=== PATIENT | female | born 1990 | race American Indian/Alaskan Native ===

== ENCOUNTER 2016-08-25 14:49 | Emergency (ER) | payer BC ==
[2016-08-25 15:06] VITALS: BP 148/78
--- NOTE | 2016-08-25 15:26 | Emergency Department Report ---
Entered by TAMAR CROWLEY, acting as scribe for TRENT KRUEGER NP. Chief Complaint: Abdominal Pain Stated Complaint: ABD PAIN,SWOLLEN FEET - HPI History of Present Illness: 26 y/o female, nontoxic, well developed, NAD, c/o of RLQ abdominal pain beginnin 4 days ago. Associated right groin pain, bilateral foot swelling, SOB. Denies recent travel, control use, calf pain, fever, chills, NVD, SOB, CP , WHEAT, dizziness, and back pain. - Exam Vital Signs: Vital Signs 08/25/16 15:02 Temperature 98.1 F Pulse Rate 100 H Respiratory 20 Rate Blood Pressure 148/78 O2 Sat by Pulse 99 Oximetry Physical Exam: GENERAL: The patient is a well-developed, well-nourished male in no apparent distress. Patient is alert and oriented x3. ABDOMEN: Soft, nontender, and nondistended. Positive bowel sounds. No hepatosplenomegaly was noted. No guarding or rebound tenderness, negative epigastric bruit. Negative psoas sign, negative boland sign, negative McBurneys sign EXTREMITIES: Without any cyanosis, clubbing, rash, lesions. Bilateral foot and LE swelling. Peripheral pulses intact. Capillary refill less than 2 seconds. MSE screening note: Focused history and physical exam performed. Due to findings the following was ordered: Amylase, CBC, CMP, Serum Test, Lipase, BNP, UA ED Disposition for MSE Condition: Stable Instructions: Abdominal Pain (ED) This documentation as recorded by the scribe,TAMAR CROWLEY,accurately reflects the service I personally performed and the decisions made by ,TRENT KRUEGER, MAX.
[2016-08-25 15:58] LABS: Amylase 37 units/L (27-131); Hematocrit 39.9 % (30.3-42.9); Hemoglobin 13.1 gm/dl (10.1-14.3); Lipase 29 units/L (13-60); Mean Corpuscular HGB Conc 33 % (30-34); Mean Corpuscular Hemoglobin 28 pg (28-32); Mean Corpuscular Volume 84 fl (79-97); Platelet Count 390 K/mm3 (140-440); Red Blood Count 4.73 M/mm3 (3.65-5.03); Red Cell Distribution Width 14.6 % (13.2-15.2); White Blood Count 7.7 K/mm3 (4.5-11.0)
[2016-08-25 16:01] LABS: Alanine Aminotransferase 17 units/L (7-56); Albumin 3.3 g/dL (3.9-5); Albumin/Globulin Ratio 1.2 %; Alkaline Phosphatase 59 units/L (35-129); Anion Gap 16 mmol/L; BUN/Creatinine Ratio 8.57; Blood Urea Nitrogen 6 mg/dL (7-17); Calcium 8.4 mg/dL (8.4-10.2); Carbon Dioxide 24 mmol/L (22-30); Chloride 103.5 mmol/L (98-107); Glucose 90 mg/dL (65-100); Potassium 4.2 mmol/L (3.6-5.0); Sodium 139 mmol/L (137-145); Total Protein 6.1 g/dL (6.3-8.2)
[2016-08-25 16:22] LABS: Bilirubin,Urine NEG (Negative); Blood,Urine NEG (Negative); Ketones,Urine NEG (Negative); Leukocyte Esterase,Urine TR (Negative); Mucus,Urine FEW /HPF; Nitrite,Urine NEG (Negative); Protein,Urine <15 mg/dL mg/dL (Negative); Urobilinogen,Urine < 2.0 mg/dL (<2.0)
== END 2016-08-25 22:35 | disposition left against medical advice (07) ==
LOC: ED 14:49
DX: R10.31 Right lower quadrant pain (principal); M79.89 Other specified soft tissue disorders; R06.02 Shortness of breath; Z53.21 Procedure and treatment not carried out due to patient leaving prior to being seen by health care provider
CPT/HCPCS: 36415; 80053; 81001; 82150; 83690; 83880; 84703; 85025

== ENCOUNTER 2017-02-15 09:33 | Emergency (ER) | payer OTHER, BC ==
[2017-02-15 09:42] VITALS: BP 157/102
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
[2017-02-15] MEDS ORDERED: ULTRAM PO ONE (10:17)
== END 2017-02-15 10:26 | disposition home or self-care (01) ==
LOC: ED 09:33
DX: M54.2 Cervicalgia (principal); M54.5 Low back pain; V49.49XA Driver injured in collision with other motor vehicles in traffic accident, initial encounter; Y93.89 Activity, other specified; Y92.89 Other specified places as the place of occurrence of the external cause; Y99.8 Other external cause status
CPT/HCPCS: 99282